=== PATIENT | male | born 1960 | race Caucasian/White ===

== ENCOUNTER 2018-04-23 18:22 | Emergency (ER) | payer MEDICAID ==
[~2018-04-23] VITALS: Ht 180.3 cm; Wt 84.1 kg
[2018-04-23] MEDS ORDERED: METH10 PO (19:25)
[2018-04-23] MEDS ORDERED: LORazepam 2 MG TABLET PO ONE (20:15)
[2018-04-23] MEDS ORDERED: CloNIDine HCL 0.2 MG TABLET PO ONE (20:15)
[2018-04-23] MEDS ORDERED: KETOROLAC TROMETHAMINE 60 MG/2 ML VIAL IM ONE (20:15)
[2018-04-23] MEDS ORDERED: ONDANSETRON HCL 4 MG TABLET PO ONE (20:15)
[2018-04-23 21:21] LABS: AMPHET/METH SCREEN,URINE NEGATIVE (NEGATIVE); BARBITURATE SCREEN, URINE NEGATIVE (NEGATIVE); BENZODIAZEPINES SCREEN,URINE NEGATIVE (NEGATIVE); CANNABINOID SCREEN,URINE NEGATIVE (NEGATIVE); COCAINE SCREEN,URINE NEGATIVE (NEGATIVE); METHADONE SCREEN, URINE NEGATIVE (NEGATIVE); OPIATE SCREEN,URINE NEGATIVE (NEGATIVE)
[2018-04-23 21:23] LABS: PHENCYCLIDINE SCREEN,URINE NEGATIVE (NEGATIVE)
[2018-04-23 21:28] VITALS: BP 137/88
[2018-04-24] MEDS ORDERED: CLON-570 PO (14:05)
[2018-04-24] MEDS ORDERED: ONDA4 PO (14:05)
[2018-04-24] MEDS ORDERED: IBUP-2071 PO (14:06)
== END 2018-04-23 21:35 | disposition home or self-care (01) ==
LOC: EMS 18:24
DX: F11.23 Opioid dependence with withdrawal (principal); R19.7 Diarrhea, unspecified; R11.0 Nausea; R45.1 Restlessness and agitation
CPT/HCPCS: 36415; 80307; 96372; 99284; G0480; J1885; Q0162

== ENCOUNTER 2018-04-24 13:39 | Emergency (ER) | payer MEDICAID, OTHER ==
[~2018-04-24] VITALS: Ht 180.3 cm; Wt 88.6 kg
[~2018-04-24 13:39] MED LIST: METH10 PO
[2018-04-24] MEDS ORDERED: CLON-570 PO (14:05)
[2018-04-24] MEDS ORDERED: ONDA4 PO (14:05)
[2018-04-24] MEDS ORDERED: IBUP-2071 PO (14:06)
[2018-04-24 16:19] LABS: BASOPHILS % (AUTO) 0.8 % (0.0-2.0); EOSINOPHILS % (AUTO) 0.9 % (1.0-6.0); HEMATOCRIT 40.7 % (41-53); HEMOGLOBIN 13.8 g/dL (13.5-17.5); LYMPHOCYTES # (AUTO) 1.8 K/uL (1.0-4.8); LYMPHOCYTES % (AUTO) 20.4 % (22.0-44.0); MEAN CORPUSCULAR HEMOGLOBIN 30.4 pg (26.0-34.0); MEAN CORPUSCULAR HGB CONC 33.9 G/dL (31.0-37.0); MEAN CORPUSCULAR VOLUME 90 fL (80-100); MONOCYTES # (AUTO) 0.6 K/uL (0.1-1.0); MONOCYTES % (AUTO) 7.2 % (2.0-9.0); NEUTROPHILS # (AUTO) 6.2 K/uL (1.8-7.7); NEUTROPHILS % (AUTO) 70.7 % (40.0-70.0); PLATELET COUNT (AUTO) 153 K/uL (150-450); RED BLOOD CELL COUNT(AUTO) 4.53 MIL/uL (4.50-5.90); RED CELL DISTRIBUTION WIDTH 14.1 % (11.5-14.5)
[2018-04-24 16:39] LABS: ANION GAP 9 mmol/L (8-16); CALCIUM, TOTAL 8.9 mg/dL (8.8-10.5); CARBON DIOXIDE 26 mmol/L (22-29); CHLORIDE 104 mmol/L (98-107); CREATININE 0.92 mg/dL (0.60-1.30); GLOMERULAR FILTR. RATE CALC > 60 mL/min (>60); GLUCOSE,RANDOM 100 mg/dL (70-110); POTASSIUM 4.7 mmol/L (3.5-5.1); SODIUM SERUM 139 mmol/L (136-145); UREA NITROGEN, BLOOD 15 mg/dL (7-18)
[2018-04-24 16:45] LABS: ALANINE AMINOTRANSFERASE 58 U/L (12-78); ALBUMIN 3.6 g/dL (3.4-5.0); ALKALINE PHOSPHATASE 83 U/L (46-116); ASPARTATE AMINOTRANSFERASE 39 U/L (15-37); BILIRUBIN,TOTAL 0.8 mg/dL (0.1-1.0); TOTAL PROTEIN, SERUM 8.5 g/dL (6.4-8.2)
[2018-04-24] MEDS ORDERED: KETOROLAC TROMETHAMINE 30 MG/ML VIAL IM ONE (16:45)
[2018-04-24] MEDS ORDERED: CloNIDine HCL 0.2 MG TABLET PO ONE (16:45)
[2018-04-24] MEDS ORDERED: LORazepam 1 MG TABLET PO ONE (16:45)
[2018-04-24 17:35] VITALS: BP 132/75
== END 2018-04-24 17:48 | disposition home or self-care (01) ==
LOC: EMS 13:40
DX: F11.23 Opioid dependence with withdrawal (principal); Z76.0 Encounter for issue of repeat prescription
CPT/HCPCS: 36415; 80053; 85025; 96372; 99283; J1885

== ENCOUNTER 2018-04-25 21:41 | Emergency (ER) | payer MEDICAID, OTHER ==
[~2018-04-25] VITALS: Ht 180.3 cm; Wt 88.6 kg
[~2018-04-25 21:41] MED LIST changes: +CLON-570 PO; +IBUP-2071 PO; +ONDA4 PO
[2018-04-26] LABS: BASOPHILS % (AUTO) 0.8 % (0.0-2.0); EOSINOPHILS % (AUTO) 2.9 % (1.0-6.0); HEMATOCRIT 37.1 % (41-53); HEMOGLOBIN 12.7 g/dL (13.5-17.5); LYMPHOCYTES # (AUTO) 1.5 K/uL (1.0-4.8); LYMPHOCYTES % (AUTO) 30.7 % (22.0-44.0); MEAN CORPUSCULAR HEMOGLOBIN 30.2 pg (26.0-34.0); MEAN CORPUSCULAR HGB CONC 34.2 G/dL (31.0-37.0); MEAN CORPUSCULAR VOLUME 88 fL (80-100); MONOCYTES # (AUTO) 0.5 K/uL (0.1-1.0); MONOCYTES % (AUTO) 9.6 % (2.0-9.0); NEUTROPHILS # (AUTO) 2.8 K/uL (1.8-7.7); PLATELET COUNT (AUTO) 104 K/uL (150-450); RED BLOOD CELL COUNT(AUTO) 4.19 MIL/uL (4.50-5.90); RED CELL DISTRIBUTION WIDTH 14.3 % (11.5-14.5)
[2018-04-26 00:17] LABS: ANION GAP 10 mmol/L (8-16); CARBON DIOXIDE 24 mmol/L (22-29); CHLORIDE 104 mmol/L (98-107); CREATININE 0.78 mg/dL (0.60-1.30); GLUCOSE,RANDOM 93 mg/dL (70-110); POTASSIUM 3.7 mmol/L (3.5-5.1); SODIUM SERUM 138 mmol/L (136-145); UREA NITROGEN, BLOOD 17 mg/dL (7-18)
[2018-04-26 00:18] LABS: CALCIUM, TOTAL 8.7 mg/dL (8.8-10.5); GLOMERULAR FILTR. RATE CALC > 60 mL/min (>60)
[2018-04-26 00:27] LABS: ALANINE AMINOTRANSFERASE 49 U/L (12-78); ALBUMIN 3.3 g/dL (3.4-5.0); ALKALINE PHOSPHATASE 80 U/L (46-116); ASPARTATE AMINOTRANSFERASE 39 U/L (15-37); BILIRUBIN,TOTAL 0.4 mg/dL (0.1-1.0); TOTAL PROTEIN, SERUM 7.7 g/dL (6.4-8.2)
[2018-04-26] MEDS ORDERED: LORazepam 1 MG TABLET PO ONE (01:45)
[2018-04-26] MEDS ORDERED: KETOROLAC TROMETHAMINE 60 MG/2 ML VIAL IM ONE (01:45)
[2018-04-26] MEDS ORDERED: CloNIDine HCL 0.2 MG TABLET PO ONE (02:45)
[2018-04-26 02:55] VITALS: BP 143/96
== END 2018-04-26 03:16 | disposition home or self-care (01) ==
LOC: EMS 21:51
DX: F11.23 Opioid dependence with withdrawal (principal); Z79.899 Other long term (current) drug therapy
CPT/HCPCS: 36415; 80053; 85025; 96372; 99283; G0480; J1885

== ENCOUNTER 2018-04-27 01:05 | Emergency (ER) | payer MEDICAID ==
[~2018-04-27] VITALS: Ht 180.3 cm; Wt 90.9 kg
[2018-04-27] MEDS ORDERED: KETOROLAC TROMETHAMINE 60 MG/2 ML VIAL IM ONE (04:00)
[2018-04-27 04:26] VITALS: BP 132/86
== END 2018-04-27 04:51 | disposition home or self-care (01) ==
LOC: EMS 01:06
DX: M54.5 Low back pain (principal); F11.23 Opioid dependence with withdrawal
CPT/HCPCS: 96372; 99283; J1885

== ENCOUNTER 2018-04-28 21:59 | Emergency (ER) | payer MEDICAID ==
[~2018-04-28] VITALS: Ht 180.3 cm; Wt 95.9 kg
[2018-04-28] MEDS ORDERED: HYDROmorphone 2 MG/ML SYRINGE IM ONE (22:45)
[2018-04-29 00:13] VITALS: BP 140/90
== END 2018-04-29 00:13 | disposition home or self-care (01) ==
LOC: EMS 22:00
DX: M54.5 Low back pain (principal); G89.29 Other chronic pain; I10 Essential (primary) hypertension; F11.90 Opioid use, unspecified, uncomplicated
CPT/HCPCS: 72100; 93005; 96372; 99283; J1170

== ENCOUNTER 2018-05-01 00:48 | Emergency (ER) | payer MEDICAID ==
[~2018-05-01] VITALS: Ht 180.3 cm; Wt 90.9 kg
[2018-05-01] MEDS: CloNIDine HCL 0.1 MG TABLET PO ONE (02:51)
[2018-05-01] MEDS: ACETAMINOPHEN 500 MG TABLET PO ONE (02:51)
[2018-05-01 03:03] VITALS: BP 142/97
== END 2018-05-01 03:10 | disposition home or self-care (01) ==
LOC: EMS 00:48
DX: G89.29 Other chronic pain (principal); M54.9 Dorsalgia, unspecified; I10 Essential (primary) hypertension; F11.90 Opioid use, unspecified, uncomplicated
CPT/HCPCS: 96372; 99283; J1030

== ENCOUNTER 2018-05-12 11:09 | Emergency (ER) | payer OTHER ==
[~2018-05-12] VITALS: Ht 180.3 cm; Wt 90.9 kg
[2018-05-12 11:22] VITALS: BP 119/78
== END 2018-05-12 22:07 | disposition left against medical advice (07) ==
LOC: EMS 11:10
DX: M54.5 Low back pain (principal); I10 Essential (primary) hypertension; F11.90 Opioid use, unspecified, uncomplicated